=== PATIENT | female | born 1935 | race Caucasian/White ===

== ENCOUNTER 2020-07-14 17:46 | Emergency (ER) | payer MEDICARE ==
[~2020-07-14] VITALS: Ht 165.1 cm; Wt 80.9 kg
[2020-07-14] MEDS ORDERED: IV RINGERS SOLUTION,LACTATED 1,000 ML IV ONE (19:15)
--- NOTE | 2020-07-14 19:21 | PHYS DOC ---
Past History Past Medical History: GERD, Other Additional Past Medical Histor: [place] Past Surgical History: Appendectomy, Cancer Surgery, Cholecystectomy, Hip Replacement Additional Past Surgical Histo: colon Alcohol Use: None Adult General Chief Complaint Chief Complaint: NAUSEA/VOMITING/DIARRHEA HPI HPI Patient is an 84-year-old female who presents with a chief complaint of soft stools over the last couple of days and positive Covid. Patient states over the last couple of days she has had soft stools but no watery diarrhea. Denies any blood in the stools. States a couple of days ago she went to the health department for a Covid swab because she had some sinus congestion and was called today letting her know that she was positive. Patient states that she called her primary care physician to let her know and was given information on quarantine. Denies headache, sore throat, fevers, chest pain, shortness of breath, abdominal pain, abdominal cramping, dysuria, hematuria or blood in the stool. States she is able to eat and drink normally. States she is making urine otherwise normally and stool has been soft but not watery. Denies any known ill contacts or recent travel. Review of Systems Review of Systems Review of systems otherwise unremarkable except for what is noted in HPI Allergies Allergies Allergies Coded Allergies Type Severity Reaction Last Updated Verified Influenza Virus Vaccines Allergy Unknown 07/14/20 Yes Sulfa (Sulfonamide Antibiotics) Allergy Unknown 07/14/20 Yes pneumococcal vaccine Allergy Unknown 07/14/20 Yes tetanus and diphtheria toxoids Allergy Unknown 07/14/20 Yes Physical Exam Physical Exam Constitutional: Well developed, well nourished, no acute distress, non-toxic appearance. [] HENT: Normocephalic, atraumatic, bilateral external ears normal, oropharynx moist, no oral exudates, nose normal. [] Eyes: PERRLA, EOMI, conjunctiva normal, no discharge. [] Neck: Normal range of motion, no tenderness, supple, no stridor. [] Cardiovascular:Heart rate regular rhythm, no murmur [] Lungs & Thorax: Bilateral breath sounds clear to auscultation [] Abdomen: Bowel sounds normal, soft, no tenderness, no masses, no pulsatile masses. [] Skin: Warm, dry, no erythema, no rash. [] Back: No tenderness, no CVA tenderness. [] Extremities: No tenderness, no cyanosis, no clubbing, ROM intact, no edema. [] Neurologic: Alert and oriented X 3, normal motor function, normal sensory function, no focal deficits noted. [] Psychologic: Affect normal, judgement normal, mood normal. [] Current Patient Data Vital Signs Vital Signs Date Time Temp Pulse Resp B/P (MAP) Pulse Ox O2 Delivery O2 Flow Rate FiO2 07/14/20 18:00 97.6 92 16 162/87 (112) 96 Room Air EKG EKG [] Radiology/Procedures Radiology/Procedures []FINDINGS: Lines, Tubes, and Devices: None. Cardiomediastinal Silhouette: Normal heart size. Aortic atherosclerotic calcification. Lungs and Pleura: Minimal patchy opacities in the right infrahilar region, possibly subsegmental atelectasis. No pleural effusion. Pulmonary vasculature unremarkable. Bones and Soft Tissues: Degenerative changes of the thoracic spine. IMPRESSION: Minimal right infrahilar patchy airspace disease, possibly subsegmental atelectasis, otherwise no evidence of acute cardiopulmonary abnormality or significant interval change. Heart Score Risk Factors: Risk Factors: DM, Current or recent (<one month) smoker, HTN, HLP, family history of CAD, obesity. Risk Scores: Risk Factors: DM, Current or recent (<one month) smoker, HTN, HLP, family history of CAD, obesity. Course & Med Decision Making Course & Med Decision Making Patient is a 84-year-old female who presents for soft stools and is Covid positive. Vital signs notable for hypertension. Physical exam noted above. Patient with no need for nausea medicine or pain medicine at this time. Laboratory analysis not concerning. Urinalysis not concerning. Chest x-ray not concerning and noted above. Patient able to walk without issue and is otherwise asymptomatic outside of the soft stool she complained about. Discussed all findings with patient and recommended a clear to light diet over the next couple of days including plenty of fluids. Advised to quarantine and given education on that for Covid. Advised to follow-up with primary care physician first thing Friday morning to update on ED visit and Covid status. Advised to come back to the ED immediately with new or concerning symptoms. Patient grateful, verbalized understanding and agreed with plan of discharge. [] Dragon Disclaimer Dragon Disclaimer This electronic medical record was generated, in whole or in part, using a voice recognition dictation system. Departure Departure: Disposition: 01 DC HOME SELF CARE/HOMELESS Condition: GOOD Referrals: RIO STOVALL (PCP) SHAWN GONZALEZ MD Jul 14, 2020 19:21
[2020-07-14 19:39] LABS: BASO % 1 % (0-3); EOS % 1 % (0-3); HEMATOCRIT 40.3 % (36.0-47.0); HEMOGLOBIN 13.3 g/dL (12.0-15.5); LYMPH # 1.1 x10^3/uL (1.0-4.8); LYMPH % 27 % (24-48); MEAN CORPUSCULAR HEMOGLOBIN 28 pg (25-35); MEAN CORPUSCULAR HGB CONC 33 g/dL (31-37); MEAN CORPUSCULAR VOLUME 86 fL (79-100); MONO # 0.3 x10^3/uL (0.0-1.1); MONO % 8 % (0-9); NEUT # 2.6 x10^3uL (1.8-7.7); NEUT % 64 % (31-73); PLATELET COUNT 177 x10^3/uL (140-400); RED BLOOD COUNT 4.71 x10^6/uL (3.50-5.40); RED CELL DISTRIBUTION WIDTH 14.7 % (11.5-14.5); WHITE BLOOD COUNT 4.1 x10^3/uL (4.0-11.0)
[2020-07-14 19:45] LABS: CREATININE 0.8 mg/dL (0.6-1.0); GFR 68.3; POTASSIUM 3.6 mmol/L (3.5-5.1)
[2020-07-14 19:49] LABS: BILIRUBIN,URINE NEG (NEG); CLARITY,URINE CLEAR; COLOR,URINE COLORLESS; GLUCOSE,URINE NEG (NEG)
[2020-07-14 19:50] LABS: BACTERIA,URINE 0 /HPF (0-FEW); NITRITE,URINE NEG (NEG); RBC,URINE 0 /HPF (0-2); SQUAMOUS EPITHELIAL CELL,UR OCC /LPF; UROBILINOGEN,URINE 0.2 mg/dL (0.2 mg/dL); WBC,URINE 0 /HPF (0-4)
[2020-07-14 19:59] LABS: ALBUMIN 3.6 g/dL (3.4-5.0); ALBUMIN/GLOBULIN RATIO 0.8 (1.0-1.7); TOTAL BILIRUBIN 0.6 mg/dL (0.2-1.0)
--- NOTE | 2020-07-14 20:49 | RAD ---
EXAMINATION: XR CHEST 1V CLINICAL HISTORY: Chest pain, DIARRHEA, COVID + EXAM DATE/TIME: 07/14/2020 7:46 PM COMPARISON: 09/14/2007 FINDINGS: Lines, Tubes, and Devices: None. Cardiomediastinal Silhouette: Normal heart size. Aortic atherosclerotic calcification. Lungs and Pleura: Minimal patchy opacities in the right infrahilar region, possibly subsegmental atel ectasis. No pleural effusion. Pulmonary vasculature unremarkable. Bones and Soft Tissues: Degenerative changes of the thoracic spine. IMPRESSION: Minimal right infrahilar patchy airspace disease, possibly subsegmental atelectasis, otherwise no kelly dence of acute cardiopulmonary abnormality or significant interval change. Electronically signed by: Ambrocio Rachel DO (07/14/2020 8:46 PM) [facility]
[2020-07-14 21:01] VITALS: BP 156/87
== END 2020-07-14 21:46 | disposition home or self-care (01) ==
LOC: ER 17:46
DX: U07.1 COVID-19 (principal); R09.81 Nasal congestion; K21.9 Gastro-esophageal reflux disease without esophagitis; Z90.49 Acquired absence of other specified parts of digestive tract; Z90.89 Acquired absence of other organs; Z88.7 Allergy status to serum and vaccine; Z88.2 Allergy status to sulfonamides
CPT/HCPCS: 36415; 71045; 80053; 81001; 85025; 96360; 96361; 99284; J7120

== ENCOUNTER 2020-07-16 10:41 | Observation (INO) | payer MEDICARE ==
[~2020-07-16] VITALS: Ht 162.6 cm; Wt 88.9 kg
--- NOTE | 2020-07-16 10:49 | PHYS DOC ---
Past History Past Medical History: GERD, Other Additional Past Medical Histor: pranav nicolásdes Past Surgical History: Appendectomy, Cancer Surgery, Cholecystectomy, Hip Replacement Additional Past Surgical Histo: colon Alcohol Use: None Adult General HPI HPI Patient is a 84-year-old female presenting for fatigue. Patient was diagnosed with COVID-19 4 days ago, is currently on day 5 of symptoms. Was seen at our ER 48 hours ago for classic COVID-19 symptoms, does not have any upper respiratory tract type symptoms, mostly fatigue, body ache, nausea with rare episodes of nonbloody nonbilious emesis and looser stools than usual. She lives home alone and has been trying to provide supportive care to her self, states she has had no appetite and feeling weaker than usual. Has had no fever, syncope, falls, URI-like symptoms, chest pain, productive cough, abdominal pain, urinary symptoms. As mention, patient complains of generalized malaise, nonspecific lightheadedness and dizziness "at times", decreased p.o. intake, ongoing nausea, and muscle aches most prominent in arms and legs. Review of Systems Review of Systems Fourteen body systems of review of systems have been reviewed. See HPI for pert inent positives and negative responses, other irving all other systems are negative, non-pertinent or non-contributory Allergies Allergies Allergies Coded Allergies Type Severity Reaction Last Updated Verified Influenza Virus Vaccines Allergy Unknown 07/14/20 Yes Sulfa (Sulfonamide Antibiotics) Allergy Unknown 07/14/20 Yes pneumococcal vaccine Allergy Unknown 07/14/20 Yes tetanus and diphtheria toxoids Allergy Unknown 07/14/20 Yes Physical Exam Physical Exam Constitutional: Well developed, well nourished, no acute distress, non-toxic appearance. HENT: Normocephalic, atraumatic, bilateral external ears normal, oropharynx moist, no oral exudates, nose normal. Eyes: PERRLA, EOMI, conjunctiva normal, no discharge. Neck: Normal range of motion, no tenderness, supple, no stridor. Cardiovascular: Heart rate regular, sinus rhythm, no murmurs rubs or gallops Lungs & Thorax: Bilateral breath sounds clear to auscultation Abdomen: Bowel sounds normal, soft, no tenderness, no masses, no pulsatile masses. Nonsurgical abdomen, no peritoneal signs Skin: Warm, dry, no erythema, no rash. Back: No tenderness, no CVA tenderness. Extremities: No tenderness, no cyanosis, no clubbing, ROM intact, no edema. Neurologic: Alert and oriented X 3, grossly normal motor & sensory function, no focal deficits noted. Gait unremarkable Psychologic: Depressed affect and mood Current Patient Data Vital Signs Vital Signs Date Time Temp Pulse Resp B/P (MAP) Pulse Ox O2 Delivery O2 Flow Rate FiO2 07/16/20 10:45 98.6 95 20 165/72 (103) 97 Room Air 07/16/20 10:41 98.6 95 18 165/72 (103) 97 Room Air Lab Results Laboratory Tests Test 07/16/20 11:18 White Blood Count 4.4 x10^3/uL Red Blood Count 4.90 x10^6/uL Hemoglobin 13.7 g/dL Hematocrit 41.5 % Mean Corpuscular Volume 85 fL Mean Corpuscular Hemoglobin 28 pg Mean Corpuscular Hemoglobin Concent 33 g/dL Red Cell Distribution Width 14.8 % Platelet Count 179 x10^3/uL Neutrophils (%) (Auto) 78 % Lymphocytes (%) (Auto) 15 % Monocytes (%) (Auto) 6 % Eosinophils (%) (Auto) 0 % Basophils (%) (Auto) 1 % Neutrophils # (Auto) 3.4 x10^3uL Lymphocytes # (Auto) 0.7 x10^3/uL Monocytes # (Auto) 0.2 x10^3/uL Eosinophils # (Auto) 0.0 x10^3/uL Basophils # (Auto) 0.1 x10^3/uL Sodium Level 137 mmol/L Potassium Level 3.4 mmol/L Chloride Level 100 mmol/L Carbon Dioxide Level 23 mmol/L Anion Gap 14 Blood Urea Nitrogen 13 mg/dL Creatinine 0.8 mg/dL Estimated GFR (Cockcroft-Gault) 68.3 BUN/Creatinine Ratio 16 Glucose Level 200 mg/dL Calcium Level 8.8 mg/dL Total Bilirubin 0.9 mg/dL Aspartate Amino Transf (AST/SGOT) 40 U/L Alanine Aminotransferase (ALT/SGPT) 39 U/L Alkaline Phosphatase 80 U/L Troponin I Quantitative 0.021 ng/mL Total Protein 8.2 g/dL Albumin 3.7 g/dL Albumin/Globulin Ratio 0.8 EKG EKG EKG ordered and interpreted by myself at 1116 hrs. as sinus rhythm at 92 bpm, prolonged AR at 236, otherwise unremarkable intervals, left axis deviation, no acute ischemic findings, no STEMI Radiology/Procedures Radiology/Procedures EXAMINATION: XR CHEST 1V CLINICAL HISTORY: Chest pain, DIARRHEA, COVID + EXAM DATE/TIME: 07/14/2020 7:46 PM COMPARISON: 09/14/2007 FINDINGS: Lines, Tubes, and Devices: None. Cardiomediastinal Silhouette: Normal heart size. Aortic atherosclerotic calcification. Lungs and Pleura: Minimal patchy opacities in the right infrahilar region, possibly subsegmental atelectasis. No pleural effusion. Pulmonary vasculature unremarkable. Bones and Soft Tissues: Degenerative changes of the thoracic spine. IMPRESSION: Minimal right infrahilar patchy airspace disease, possibly subsegmental atelectasis, otherwise no evidence of acute cardiopulmonary abnormality or significant interval change. Electronically signed by: Ambrocio Rachel DO (07/14/2020 8:46 PM) [facility] Heart Score HEART Score for Chest Pain: HEART Score for Chest Pain Response (Comments) Value History Slighlty/Non-Suspicious 0 ECG Nonspecific Repolarizatio 1 Age > 65 2 Risk Factors >3 Risk Factors or Hx CAD 2 Troponin < Normal Limit 0 Total 5 Risk Factors: Risk Factors: DM, Current or recent (<one month) smoker, HTN, HLP, family history of CAD, obesity. Risk Scores: Risk Factors: DM, Current or recent (<one month) smoker, HTN, HLP, family history of CAD, obesity. Course & Med Decision Making Course & Med Decision Making Pertinent Labs and Imaging studies reviewed. (See chart for details) Discussed no obvious emergent and/or surgical findings today in known Covid positive patient who is still symptomatic. She lives home alone, denies any falls but admits feeling "lightheaded at times" with several "near misses" Patient appears clinically dehydrated and responded well to IV fluid rehydration in ER setting. Patient still concerned about returning home alone as she does not have regular care at home to assist through personal deficits at this time of illness Unsafe to disposition home. I discussed need for observation admission for home safety evaluation and continued supportive care with hospitalist, Dr. Traore, who agreed to accept patient under his care at [facility] I updated patient on plan of care that included admission to [facility] and she was amenable. All questions and concerns addressed prior to ER transportation to [facility] for admission Dragon Disclaimer Dragon Disclaimer This electronic medical record was generated, in whole or in part, using a voice recognition dictation system. Departure Departure: Impression: Primary Impression: COVID-19 Additional Impression: Nausea, vomiting, and diarrhea Disposition: ADMITTED INPT THIS HOSP Admitting Physician: Fermin Traore Condition: STABLE Referrals: RIO STOVALL (PCP) Problem Qualifiers HUONG LANDEROS DO Jul 16, 2020 10:49
[2020-07-16 11:33] LABS: BASO # 0.1 x10^3/uL (0.0-0.2); BASO % 1 % (0-3); EOS % 0 % (0-3); HEMATOCRIT 41.5 % (36.0-47.0); HEMOGLOBIN 13.7 g/dL (12.0-15.5); LYMPH # 0.7 x10^3/uL (1.0-4.8); LYMPH % 15 % (24-48); MEAN CORPUSCULAR HEMOGLOBIN 28 pg (25-35); MEAN CORPUSCULAR HGB CONC 33 g/dL (31-37); MEAN CORPUSCULAR VOLUME 85 fL (79-100); MONO # 0.2 x10^3/uL (0.0-1.1); MONO % 6 % (0-9); NEUT # 3.4 x10^3uL (1.8-7.7); NEUT % 78 % (31-73); PLATELET COUNT 179 x10^3/uL (140-400); RED CELL DISTRIBUTION WIDTH 14.8 % (11.5-14.5); WHITE BLOOD COUNT 4.4 x10^3/uL (4.0-11.0)
--- NOTE | 2020-07-16 11:34 | EKG ---
[address] [address] Test Date: 2020-07-16 Test Time: 11:06:37 Pat Name: BARRINGTON TRIPATHI Department: Room: Gender: F Drug Safety Physician: : [id number] Requested By: HUONG LANDEROS Order Number: [id number] Reading MD: Measurements Intervals [place] Rate: 92 P: 90 OK: 236 QRS: -59 QRSD: 88 T: 57 QT: 364 QTc: 455 Interpretive Statements SINUS RHYTHM PROLONGED OK INTERVAL ABNORMAL LEFT AXIS DEVIATION LEFT ANTERIOR FASCICULAR BLOCK CONSIDER LEFT VENTRICULAR HYPERTROPHY ST & T ABNORMALITY, CONSIDER HIGH LATERAL ISCHEMIA OR LEFT VENTRICULAR STRAIN ABNORMAL ECG RI6.02 No previous ECG available for comparison
[2020-07-16 11:41] LABS: CALCIUM 8.8 mg/dL (8.5-10.1); CREATININE 0.8 mg/dL (0.6-1.0); GFR 68.3; POTASSIUM 3.4 mmol/L (3.5-5.1)
[2020-07-16 11:47] LABS: ALBUMIN 3.7 g/dL (3.4-5.0); ALBUMIN/GLOBULIN RATIO 0.8 (1.0-1.7); TOTAL BILIRUBIN 0.9 mg/dL (0.2-1.0); TOTAL PROTEIN 8.2 g/dL (6.4-8.2)
[2020-07-16 14:30] VITALS: BP 139/69
--- NOTE | 2020-07-16 14:34 | NUR ---
The patient, BARRINGTON TRIPATHI, 84 y/o, F admitted by HILARIO GLOVER MD, was given written information regarding hospital policies, unit procedures and contact persons. Valuables were checked and VS taken, please see chart.
[2020-07-16] MEDS ORDERED: VERA240C2 PO (14:42)
[2020-07-16] MEDS ORDERED: ATORVASTATIN CA80 MG PO (14:42)
[2020-07-16] MEDS ORDERED: GLIM2TAB7 PO (14:42)
[2020-07-16] MEDS ORDERED: POTA20TA4 PO (14:42)
[2020-07-16] MEDS ORDERED: LOSA100T14 PO (14:42)
[2020-07-16] MEDS ORDERED: CHOL2400 MC (14:42)
[2020-07-16] MEDS: ACETAMINOPHEN 325 MG TABLET PO PRN ×2 (15:22→22:39)
[2020-07-16] MEDS: CALCIUM CARBONATE 500 MG TAB.CHEW PO PRN (15:22)
[2020-07-16 19:25] VITALS: BP 118/52
[2020-07-16] MEDS: ATORVASTATIN CALCIUM 20 MG TABLET PO SCH (19:58)
[2020-07-16] MEDS: VERAPAMIL SR 180 MG TABLET.ER. PO SCH (19:58)
[2020-07-16 23:34] VITALS: BP 124/49
--- NOTE | 2020-07-17 04:04 | NUR ---
PT WAS IN BED UPON ASSESSMENT AND MED PASS. PT IS ANXIOUS BUT COOPERATIVE. PT HAD CONCERNS WITH HER WATERY BOWEL MOVEMENTS. SHE ASKED IF SHE COULD HAVE SOMETHING FOR THEM. THIS NURSE CALLED THE DR TO REQUEST FLUIDS DO TO PT BEING DEHYDRATED AND ALSO HAVING SOME MANY WATERY STOOLS AND ALSO SOMETHING TO HELP PT WITH HER BOWELS. DR GAVE NO ORDERS.
[2020-07-17 05:20] VITALS: BP 109/53
--- NOTE | 2020-07-17 08:46 | HP ---
ADMIT DATE: 07/16/2020 ATTENDING PHYSICIAN: Dr. Glover. CHIEF COMPLAINT: Weakness. HISTORY OF PRESENT ILLNESS: The patient is an 84-year-old female who lives alone. She had COVID-19 diagnosed five days ago. Her main complaints, however, are GI in nature. She has had loose stools and diarrhea ongoing for the last 2 weeks. She has GI doctor with a known history of Crohn's disease. She has had colon resection and some short bowel issues. Colon resection was in 1981. No bloody stools. Her abdominal exam was unremarkable. She does not appear clinically dehydrated. Has more loose stools and explosive diarrhea. In any event, she is concerned she had some fatigue, myalgias. She lives alone. There is no one to look after her and she thinks that she needs is exacerbation of Crohn's. I suspect she has gastroenteritis, although underlying pathology cannot be ruled out. PAST MEDICAL HISTORY: Significant for Crohn's disease, COVID-19 exposure, gastroesophageal reflux disease, diabetes, and hyperlipidemia. PAST SURGICAL HISTORY: Includes appendectomy, cholecystectomy, partial colectomy with primary anastomosis, hip replacement. ALLERGIES: SHE HAS ALLERGIES TO SULFA DRUGS, PNEUMOCOCCAL VACCINE, TETANUS AND DIPHTHEROID TOXIN. CURRENT MEDICATIONS: Include the following: She was taking verapamil 240 daily, potassium, losartan, glimepiride, cholecalciferol and Lipitor. FAMILY HISTORY: Father of heart disease at age 59. Mom of unspecified cancer at age 84, mother also had dementia. SOCIAL HISTORY: She is a nonsmoker, nondrinker. REVIEW OF SYSTEMS: Significant for the GI symptoms. No pain, no fevers, chills, cough, congestion, generalized weakness and tired. All other systems reviewed and turned to be negative. PHYSICAL EXAMINATION: GENERAL: When I saw her, this is a pleasant elderly female who was fairly alert. INITIAL VITAL SIGNS: Showed a blood pressure of 139/69, pulse is 81 and regular, temperature 98.6 degrees Fahrenheit, oxygen saturation 93% on room air. HEENT: Head is without trauma. Pupils are reactive. Sclerae nonicteric. Oropharynx is clear. NECK: Supple, no bruits identified. LUNGS: Good breath sounds. CARDIOVASCULAR: Showed regular heart tones. No gallops. ABDOMEN: Soft, no guarding, rebound tenderness. Bowel sounds are hypoactive. There is no guarding. There are no masses palpated. EXTREMITIES: Showed no cyanosis or edema. NEUROLOGIC: Focally intact. Speech is fluent. SKIN: Warm and dry. PERTINENT LABORATORY STUDIES: Her sodium is 137 mEq/L, potassium 3.4. Nonfasting blood sugar was 200; however, repeated is down to 121. Her BUN was 13, creatinine 0.8 mg percent. Hemoglobin is 13.7 g/dL with a white count of 4400. Normal differential. Chest x-ray done on the showed minimal patchy opacity in the right infrahilar region. No acute other infiltrates identified. ASSESSMENT: 1. An 84-year-old female with loose stools and diarrhea. Etiology needs to be determined. She has had this for several days now. 2. Generalized weakness and fatigue without laboratory evidence of dehydration. 3. Recent COVID-19 exposure without pulmonary symptoms. 4. History of Crohn's disease with previous colon resection and anastomosis. 5. Hypertension. 6. Type 2 diabetes. 7. Strong anxiety component. PLAN: 1. She was admitted to our medical service. 2. The patient is trying to get a hold of her daughter and primary care doctor to get her transferred to [facility] where her GI doctor is. I will see if this is feasible. 3. Diet as tolerated. 4. Continue home meds. HILARIO GLOVER MD DR: KATHERYN/fabienne JOB#: [id number] / [id number] RIO Copeland
[2020-07-17] MEDS: LOSARTAN 50 MG TABLET. PO SCH (09:31)
[2020-07-17] MEDS: POTASSIUM CHLORIDE 20 MEQ TABLET.ER. PO SCH (09:32)
[2020-07-17] MEDS: GLIMEPIRIDE 2 MG TABLET PO SCH (09:32)
[2020-07-17 10:43] VITALS: BP 127/61
[2020-07-17] MEDS ORDERED: DIPHENOXYLATE/ATROPINE TABLET. PO PRN (11:15)
[2020-07-17] MEDS: CALCIUM CARBONATE 500 MG TAB.CHEW PO PRN (13:09)
[2020-07-17 15:15] VITALS: BP 135/71
[2020-07-17 19:05] VITALS: BP 123/61
[2020-07-17] MEDS: ATORVASTATIN CALCIUM 20 MG TABLET PO SCH (20:24)
[2020-07-17] MEDS: VERAPAMIL SR 180 MG TABLET.ER. PO SCH (20:24)
[2020-07-17 23:30] VITALS: BP 108/48
[2020-07-18 06:00] VITALS: BP 111/52
[2020-07-18] MEDS: POTASSIUM CHLORIDE 20 MEQ TABLET.ER. PO SCH (08:36)
[2020-07-18] MEDS: GLIMEPIRIDE 2 MG TABLET PO SCH (08:36)
[2020-07-18] MEDS: LOSARTAN 50 MG TABLET. PO SCH (08:36)
[2020-07-18 10:50] VITALS: BP 125/70
--- NOTE | 2020-07-18 11:29 | PN ---
DATE: 07/18/2020 ATTENDING PHYSICIAN: Dr. Glover. SUBJECTIVE: The patient still is having bloating, abdominal discomfort, still having loose stools. She was able to send the specimen down for C. diff toxin. OBJECTIVE FINDINGS: VITAL SIGNS: Blood pressure today is 111/52, temperature 99.1 degrees Fahrenheit, heart rate 72 and regular, oxygen saturation 94% on room air. HEENT: Head is without trauma. Pupils are reactive. Sclerae nonicteric. Oropharynx clear. NECK: Supple, no bruits. LUNGS: Entirely clear. CARDIOVASCULAR: Showed regular heart tones. No gallops. ABDOMEN: Soft. There is some gaseous distention. Normoactive bowel sounds. No masses, no guarding or rebound tenderness. No masses palpated. EXTREMITIES: Without edema. NEUROLOGIC: Focally intact. Affect is fairly normal. ASSESSMENT: 1. An 84-year-old female with recurrent diarrhea. 2. Generalized weakness. 3. History of Crohn's disease. I do not believe this is active at this time. 4. The patient's daughter tells me she has had 2 previous episodes of Clostridium difficile colitis, most recently 8 months ago. PLAN: 1. Simethicone 120 mg t.i.d. 2. Diet as tolerated. 3. Await stool specimen for CDTA. 4. Empiric vancomycin pending results of the CTDA. If it is negative, we can stop the antibiotics at that time. HILARIO GLOVER MD DR: KATHERYN/fabienne JOB#: [id number] / [id number]
[2020-07-18] MEDS: SIMETHICONE 80 MG TAB.CHEW PO SCH ×2 (12:45→20:07)
[2020-07-18] MEDS ORDERED: VANCOMYCIN 125 MG/2.5 ML ORAL SOLUTION. PO SCH (13:00)
[2020-07-18 14:58] VITALS: BP 111/65
[2020-07-18] MEDS ORDERED: CHOLECALCIFEROL (VITAMIN D3) 50,000 UNIT CAPSULE PO SCH (16:00)
[2020-07-18] MEDS: IV NORMAL SALINE 1,000ML 1,000 ML IV SCH (16:01)
--- NOTE | 2020-07-18 16:58 | NUR ---
PATIENT IS AWAKE IN A BED, CALM AND COOPERATIVE UPON ASSESSMENT, PATIENT C/O ABDOMINAL DISCOMFORT, BLOATING, GAS , LOOSE STOOL. PATIENT C/O LOW APPETITE. C DIFF RESULT CAME BACK NEGATIVE, DR. GLOVER NOTIFIED, OBTAINED ORDER FOR IV FLUIDS OF NS AT 60ML/HR. WILL CTM.
[2020-07-18 19:32] VITALS: BP 128/66
[2020-07-18] MEDS ORDERED: ACETAMINOPHEN 325 MG TABLET PO PRN (19:45)
[2020-07-18] MEDS: ATORVASTATIN CALCIUM 20 MG TABLET PO SCH (20:06)
[2020-07-18] MEDS: VERAPAMIL SR 180 MG TABLET.ER. PO SCH (20:07)
--- NOTE | 2020-07-18 21:19 | NUR ---
Pt resting in bed when approached for assessment. VS obtained. Pt had low grade temp of 100.0. MD was called and orders received. Tylenol given as indicated. Pt stated her "stomach feels much better now" and no complaints of pain. Pt was given crackers and applesauce and instructed to eat what was tolerable. Pt is resting in bed w/ call light in reach. Will continue to monitor.
[2020-07-19 05:12] VITALS: BP 117/50
[2020-07-19] MEDS: GLIMEPIRIDE 2 MG TABLET PO SCH (08:18)
[2020-07-19 08:19] VITALS: BP 117/50
[2020-07-19] MEDS: POTASSIUM CHLORIDE 20 MEQ TABLET.ER. PO SCH (08:19)
[2020-07-19] MEDS: LOSARTAN 50 MG TABLET. PO SCH (08:19)
[2020-07-19] MEDS: SIMETHICONE 80 MG TAB.CHEW PO SCH (08:19)
[2020-07-19] MEDS: IV NORMAL SALINE 1,000ML 1,000 ML IV SCH (08:30)
[2020-07-19 10:10] LABS: BASO % 1 % (0-3); EOS % 0 % (0-3); HEMATOCRIT 40.6 % (36.0-47.0); HEMOGLOBIN 13.2 g/dL (12.0-15.5); LYMPH % 24 % (24-48); MEAN CORPUSCULAR HEMOGLOBIN 28 pg (25-35); MEAN CORPUSCULAR HGB CONC 33 g/dL (31-37); MEAN CORPUSCULAR VOLUME 85 fL (79-100); MONO # 0.4 x10^3/uL (0.0-1.1); MONO % 9 % (0-9); NEUT # 2.9 x10^3uL (1.8-7.7); NEUT % 66 % (31-73); PLATELET COUNT 149 x10^3/uL (140-400); RED BLOOD COUNT 4.75 x10^6/uL (3.50-5.40); RED CELL DISTRIBUTION WIDTH 14.9 % (11.5-14.5); WHITE BLOOD COUNT 4.4 x10^3/uL (4.0-11.0)
[2020-07-19 10:21] LABS: ALBUMIN 3.4 g/dL (3.4-5.0); ALBUMIN/GLOBULIN RATIO 0.8 (1.0-1.7); CALCIUM 8.7 mg/dL (8.5-10.1); CREATININE 0.7 mg/dL (0.6-1.0); GFR 79.7; POTASSIUM 3.4 mmol/L (3.5-5.1); TOTAL BILIRUBIN 0.6 mg/dL (0.2-1.0); TOTAL PROTEIN 7.7 g/dL (6.4-8.2)
--- NOTE | 2020-07-19 14:35 | DISCH ---
HOME HEALTH DISCHARGE/MEDS DISCHARGE INFORMATION: Discharge Date: Jul 19, 2020 Final Diagnosis: Problems Medical Problems: (1) Nausea, vomiting, and diarrhea Status: Acute Condition on Discharge: Stable CODE STATUS: Code Status: Full HOME HEALTH: Face to Face: I certify this patient is under my care and that I, or a nurse practitioner or physician's medical assistant instructor working with me, had a face to face encounter that meets the physician face to face encounter requirements with this patient on 07/19/2020 Jail For: Admin/Educate Injections Physical Therapy For: Evalulation/Treatment Occupational Therapy For: Evaluation/Treatment Homebound Status Met By: Extreme weakness w/ amb. POST DISCHARGE ORDERS: Activity Instructions for Disc: Activity as tolerated DIET AFTER DISCHARGE: Regular CERTIFICATION STATEMENT: Certification Statement: Based on the above finding, I certify that this patient is confined to the home and needs intermittent longterm care, physical therapy and/or speech therapy, or continues to need occupational therapy.~ This patient is under my care, and I have initiated the establishment of the plan of care.~ This patient will be followed by myself or a community physician who will periodically review the plan of care. DISCHARGE MEDICATIONS: Home Meds Reported Medications Glimepiride (GLIMEPIRIDE) 2 Mg Tablet, 1 TAB PO DAILY for diabetes , #30 TAB 5 Refills 07/16/20 Potassium Chloride (POTASSIUM CHLORIDE ) 20 Meq Tablet.er, 20 MEQ PO DAILY for SUPPLEMENT, TAB 07/16/20 Losartan Potassium (LOSARTAN POTASSIUM) 100 Mg Tablet, 50 MG PO DAILY for HYPERTENSION, TAB 07/16/20 Atorvastatin Calcium (ATORVASTATIN CALCIUM) 80 Mg Tablet, 1 TAB PO HS for high cholesterol, #30 TAB 5 Refills 07/16/20 Cholecalciferol (Vitamin D3) (VITAMIN D3) 2,400 Unit/1 Ml Liquid, [address] UNIT [facility] WEEKLY for supplement, LIQUID 07/16/20 Verapamil Hcl (VERAPAMIL ER) 240 Mg Cap24h.pel, 180 MG PO HS for high blood pressure, CAP 07/16/20 CRISTI TERRAZAS MD Jul 19, 2020 14:35
--- NOTE | 2020-07-19 15:00 | DS ---
DATE OF DISCHARGE: 07/16/2020 HOSPITAL COURSE: The patient old is an 84-year-old female patient who was diagnosed with COVID-19 about 5 days prior to admission. She apparently had had a cough and nasal stuffiness and [facility] she was tested and was diagnosed with COVID-19. She was seen at the [facility] about 48 hours for classic COVID-19 symptoms. Does not have any upper respiratory type symptoms, mostly fatigue, body ache, nausea with rare episodes of nonbloody, nonbilious emesis, and looser stools than usual. She lives at home alone and has been trying to provide supportive care through herself. States she has had no appetite and feeling weaker than usual. She had no fever, syncope, falls, upper respiratory tract infection like symptoms. Denied any chest pain, productive cough, abdominal pain, or urinary symptoms. Did complain of generalized malaise and nonspecific lightheadedness and dizziness at times, decreased p.o. intake, and ongoing nausea and muscle aches, most prominently in arms and legs. She was admitted, started on IV fluid and did actually very well. She remained afebrile, hemodynamically stable. PHYSICAL EXAMINATION: GENERAL: When I examined her, she looked well and was clearly in no apparent respiratory distress. No pallor, jaundice, cyanosis, or thyromegaly. No jugular venous distention, no limb edema. VITAL SIGNS: Her heart rate was 67, blood pressure was 117/50, temperature 97.4, respiratory rate was 18, and her oxygen saturation was 95%. HEAD, EYES, EARS, NOSE AND THROAT: Showed normocephalic, atraumatic. NECK: Supple. HEART: Showed normal first and second heart sounds. No gallop, rub, or murmur. CHEST: Clear to auscultation. No crepitation or rhonchi. ABDOMEN: Distended, soft, nontender. NEUROLOGIC: She is awake, alert, responding appropriately. Her cranial nerves are intact. She moves extremities without difficulty. She ambulates without assistance or assistive devices. Her intake over the last 24 hours was 613; no output was recorded. LABORATORY DATA: Her lab work as of this morning showed a white cell count 4400, hemoglobin 13, hematocrit 40, MCV 85, and platelet count of 149,000. Her chemistry showed a serum sodium 139, potassium 3.4, chloride 103, bicarbonate 22, anion gap of 14, BUN 16, creatinine 0.7, estimated GFR was 79 mL per minute. Her glucose 144, calcium was 8.7. Total bilirubin, AST, ALT, and alkaline phosphatase were normal. Total protein 7.7, albumin was 3.4. Her stool for C. diff toxins was negative. DISCHARGE MEDICATIONS: The patient was discharged home to continue on atorvastatin 80 mg at bedtime, cholecalciferol, vitamin D3 50,000 units once a week, glimepiride 2 mg once a day, losartan potassium 50 mg once a day, potassium chloride 20 mEq once a day, and verapamil 180 mg once a day. FINAL DISCHARGE DIAGNOSES: 1. COVID-19 infection. The patient is feeling generally much better. All her aches and pains and generalized weakness have resolved. 2. Crohn's disease. She continues to have loose bowel movement. Did not seem to be worse than her usual when questioning her closely. 3. Other medical problems include obviously hypertension, gastroesophageal reflux disease, diabetes, and hyperlipidemia. CRISTI TERRAZAS MD DR: TSERING/fabienne JOB#: [id number] / [id number]
--- NOTE | 2020-07-19 15:08 | NUR ---
DISCHARGE PATIENT TO HOME WITH HOME HEALTH SERVICES. DISCHARGE PAPERWORK COVERED WITH PATIENT, INCLUDING MEDICATION LIST. IV DISCONTINUED. NO BLEEDING AT SITE AFTER DISCONTINUATION. PT AMBULATES WITH CANE TO FRONT DOORS FOR DISCHARGE.
[2020-07-23] MEDS ORDERED: NON FORMULARY ITEM (Cholecalciferol (Vitamin D3) (Vitamin D3) 50,000 UNIT) MC SCH (09:00)
== END 2020-07-19 15:10 | disposition home health service (06) ==
LOC: ER 10:41 → 1 SOUTH 11:54 → ER 13:07 → OBSVTOIN 07-17 13:45 → INTOOBSV 07-17 13:45
PROVIDERS: ADMIT Hospitalist; ATTEND Hospitalist
DX: U07.1 COVID-19 (principal); R53.1 Weakness; I10 Essential (primary) hypertension; E11.9 Type 2 diabetes mellitus without complications; E78.5 Hyperlipidemia, unspecified; F41.9 Anxiety disorder, unspecified; R11.2 Nausea with vomiting, unspecified; K50.90 Crohn's disease, unspecified, without complications; K21.9 Gastro-esophageal reflux disease without esophagitis; Z96.649 Presence of unspecified artificial hip joint; Z90.49 Acquired absence of other specified parts of digestive tract; Z98.890 Other specified postprocedural states
CPT/HCPCS: 36415; 80053; 82947; 84484; 85025; 87493; 93005; 96360; 96361; 99285; G0378; J7030; G0379

== ENCOUNTER 2020-07-21 10:20 | Inpatient (IN) | payer MEDICARE ==
[~2020-07-21] VITALS: Ht 162.6 cm; Wt 89.3 kg
[~2020-07-21 10:20] MED LIST: ATORVASTATIN CA80 MG PO; CHOL2400 MC; GLIM2TAB7 PO; LOSA100T14 PO; POTA20TA4 PO; VERA240C2 PO
--- NOTE | 2020-07-21 10:26 | PHYS DOC ---
Past History Past Medical History: GERD, Other Additional Past Medical Histor: [place] Past Surgical History: Appendectomy, Cancer Surgery, Cholecystectomy, Hip Replacement Additional Past Surgical Histo: colon Alcohol Use: None General Adult EDM: Chief Complaint: URINARY FREQUENCY HPI: HPI: 84-year-old female presents emergency department today with generalized weakness. Her generalized weakness has worsened over the past 2 days. She was discharged from the hospital about 2 days ago. She had been admitted for generalized weakness. She denies any focal neurologic deficits she denies vertigo. She denies double vision. She denies any pain. She has had slight loose stools which is chronic for her as she does have Crohn's disease. Location generalized. Duration constant. No alleviating factors. ROS neg for cp/soa/cough. She denies fevers chills rash nuchal rigidity. She denies dysuria polyuria or hematuria. All other review of systems negative ED course: 84-year-old female presenting with generalized weakness. EKG obtained and reviewed by myself shows sinus rhythm with regular rate. ST segments congruent. Not suggestive of acute ischemia. CBC unremarkable. Chemistry panel unremarkable. Troponin within normal notes. Lactic acid within normal notes. Urine analysis is negative for infection. Chest x-ray unremarkable. Head CT unremarkable. Patient feels that she is too weak to go home. She initially wanted to go to [facility] however they are currently not excepting transfers. We will admit the patient for further evaluation and treatment. Dr. Barajas accepts patient for admission. Potentially we can transfer the patient if a bed becomes available at [facility]. For now we will admit the patient here. Patient is on an oral third-generation cephalosporin for a history of a pneumonia. I gave her her dose for this morning. Allergies: Allergies: Allergies Coded Allergies Type Severity Reaction Last Updated Verified Influenza Virus Vaccines Allergy Unknown 07/14/20 Yes Sulfa (Sulfonamide Antibiotics) Allergy Unknown 07/14/20 Yes pneumococcal vaccine Allergy Unknown 07/14/20 Yes tetanus and diphtheria toxoids Allergy Unknown 07/14/20 Yes Physical Exam: PE: Constitutional: Well developed, well nourished, no acute distress, non-toxic appearance. [] HENT: Normocephalic, atraumatic, bilateral external ears normal, oropharynx moist, no oral exudates, nose normal. [] Eyes: PERRLA, EOMI, conjunctiva normal, no discharge. [] Neck: Normal range of motion, no tenderness, supple, no stridor. [] Cardiovascular:Heart rate regular rhythm, no murmur [] Lungs & Thorax: Bilateral breath sounds clear to auscultation [] Abdomen: Bowel sounds normal, soft, no tenderness, no masses, no pulsatile masses. [] Skin: Warm, dry, no erythema, no rash. [] Back: No tenderness, no CVA tenderness. [] Extremities: No tenderness, no cyanosis, no clubbing, ROM intact, no edema. [] Neurologic: Mental status: Awake oriented and alert x3 Cranial nerves: Extraocular movements intact, eyebrows richie bilaterally, smile symmetric, uvula elevation nl, shoulder shrug intact bilaterally, tongue protrusion normal [id number] normal. Speech clear. Sensation: equal and normal in all extremities Strength: 5/5 in upper and lower extremities bilaterally Psychologic: Affect normal, judgement normal, mood normal. [] EKG: EKG: [] Radiology/Procedures: Radiology/Procedures: [] Heart Score: Risk Factors: Risk Factors: DM, Current or recent (<one month) smoker, HTN, HLP, family history of CAD, obesity. Risk Scores: Score 0 - 3: 2.5% MACE over next 6 weeks - Discharge Home Score 4 - 6: 20.3% MACE over next 6 weeks - Admit for Clinical Observation Score 7 - 10: 72.7% MACE over next 6 weeks - Early Invasive Strategies Course & Med Decision Making: Course & Med Decision Making Pertinent Labs and Imaging studies reviewed. (See chart for details) [] Dragon Disclaimer: Dragon Disclaimer: This electronic medical record was generated, in whole or in part, using a voice recognition dictation system. Departure Departure: Impression: Primary Impression: Generalized weakness Disposition: ADMITTED INPT THIS HOSP Condition: STABLE Referrals: RIO STOVALL (PCP) LAN WANG MD Jul 21, 2020 10:26
--- NOTE | 2020-07-21 10:44 | EKG ---
[facility] ED [facility] [address] [place] [id number] Test Date: 2020-07-21 Test Time: 10:33:48 Pat Name: BARRINGTON TRIPATHI Department: Room: Gender: F Watch Dial Maker: : 1935 Requested By: LAN WANG Order Number: [id number] Reading MD: Measurements Intervals [place] Rate: 79 P: 90 CA: 208 QRS: -60 QRSD: 96 T: 71 QT: 392 QTc: 456 Interpretive Statements SINUS RHYTHM ABNORMAL LEFT AXIS DEVIATION LEFT ANTERIOR FASCICULAR BLOCK LVH WITH REPOLARIZATION ABNORMALITY QRS(T) CONTOUR ABNORMALITY CONSIDER ANTEROSEPTAL MYOCARDIAL DAMAGE ABNORMAL ECG RI6.02 No previous ECG available for comparison
[2020-07-21 11:08] LABS: BASO # 0.1 x10^3/uL (0.0-0.2); BASO % 1 % (0-3); EOS % 0 % (0-3); HEMATOCRIT 43.7 % (36.0-47.0); HEMOGLOBIN 14.4 g/dL (12.0-15.5); LYMPH % 20 % (24-48); MEAN CORPUSCULAR HEMOGLOBIN 28 pg (25-35); MEAN CORPUSCULAR HGB CONC 33 g/dL (31-37); MEAN CORPUSCULAR VOLUME 85 fL (79-100); MONO # 0.3 x10^3/uL (0.0-1.1); MONO % 7 % (0-9); NEUT # 3.6 x10^3uL (1.8-7.7); NEUT % 72 % (31-73); PLATELET COUNT 117 x10^3/uL (140-400); RED BLOOD COUNT 5.12 x10^6/uL (3.50-5.40)
[2020-07-21] MEDS ORDERED: IV NORMAL SALINE 1,000ML 1,000 ML IV ONE (11:15)
[2020-07-21 11:19] LABS: CALCIUM 8.7 mg/dL (8.5-10.1); CREATININE 0.8 mg/dL (0.6-1.0); GFR 68.3; POTASSIUM 3.3 mmol/L (3.5-5.1)
[2020-07-21 11:31] LABS: ALBUMIN 3.6 g/dL (3.4-5.0); DIRECT BILIRUBIN 0.2 mg/dL (0.0-0.2); TOTAL BILIRUBIN 0.6 mg/dL (0.2-1.0); TOTAL PROTEIN 7.7 g/dL (6.4-8.2)
--- NOTE | 2020-07-21 11:58 | RAD ---
CT HEAD/BRAIN WO Date: 07/21/2020 11:02 AM Clinical Indication: Reason: gen weakness / Spl. Instructions: / History: Comparison: None. Technique: 5 mm axial tomographic images were obtained of the head without contrast. These were view ed on brain and bone windows. One or more of the following dose reduction techniques were utilized: A utomated exposure control (AEC), Adjustment of mA and/or kV according to patient size, Use of iterati ve reconstruction technique such as ASiR, CT scan done according to ALARA and image gently/image irving ly Findings: Mild generalized cerebral and cerebellar volume loss. Mild nonspecific periventricular hypoattenuatio n, most commonly seen with chronic small vessel ischemic disease. Calcified atherosclerosis of the bi lateral cavernous and paraclinoid internal carotid arteries and intracranial vertebral arteries. No intra- or extra-axial mass or fluid collection. No acute hemorrhage. The ventricles are normal in size, shape, and morphology. The xavier-white matter junction is normal. The subarachnoid cisterns are patent. The visualized paranasal sinuses are normal. The visualized portions of the orbits and globes are no rmal. The mastoid air cells are clear. The addiction professional topogram shows no lytic lesion or fracture. Impression: No acute intracranial process. Mild cerebral volume loss. Mild chronic small vessel ischemic disease. Electronically signed by: Jose Antonio Crockett MD (07/21/2020 11:56 AM) [id number]
[2020-07-21] MEDS ORDERED: CEFDINIR 300 MG CAPSULE PO ONE (12:00)
[2020-07-21 12:11] LABS: BACTERIA,URINE 0 /HPF (0-FEW); BILIRUBIN,URINE NEG (NEG); CLARITY,URINE CLEAR; COLOR,URINE AMBER; GLUCOSE,URINE NEG (NEG); HYALINE CASTS, URINE FEW /HPF; NITRITE,URINE NEG (NEG); RBC,URINE 0 /HPF (0-2); SQUAMOUS EPITHELIAL CELL,UR FEW /LPF; UROBILINOGEN,URINE 0.2 mg/dL (0.2 mg/dL)
--- NOTE | 2020-07-21 12:14 | RAD ---
XR CHEST 1V Clinical Indication: Reason: gen weak Comparison: AP chest July 14, 2020. Findings: Atherosclerotic aortic arch. The cardiomediastinal silhouette is normal. Lungs are clear. There is no pneumothorax. No pleural effusion is appreciated. No acute bone abnormality. Old fracture of the lef t humeral neck. IMPRESSION: No acute cardiopulmonary process. Electronically signed by: Thierry Boone MD (07/21/2020 12:11 PM) [id number]
[2020-07-21] MEDS ORDERED: IV NORMAL SALINE 1,000ML 1,000 ML IV SCH (13:15)
[2020-07-21 13:54] VITALS: BP 132/56
--- NOTE | 2020-07-21 13:57 | NUR ---
PATIENT IS 84 Y O FEMALE ARRIVED VIA EMS . PATIENT IS A/O X4, CALM AND COMPLIANT UPON ASSESSMENT, C/O WEAKNESS AND ABDOMINAL DISCOMFORT. VS OBTAINED AND ARE STABLE. PATIENT WAS ORIENTED TO THE ROOM AND HOSPITAL POLICIES. PATIENT REQUESTED TO HAVE SOME SNACK, STATED SHE IS HUNGRY, DENIED PAIN, DENIED N/V.
--- NOTE | 2020-07-21 14:41 | PREOP HP ---
DATE OF SERVICE: 07/21/2020 HISTORY OF PRESENT ILLNESS: The patient is an 84-year-old female patient who was discharged only few days ago, specifically on 07/19/2019 after she was admitted here for COVID-19 infection. At that time, she said that she felt generally much better. All her aches and pains and generalized weakness had resolved. She did have Crohn's disease and continued to have some loose bowel movement, but at that time, did not seem to be worse than her usual. She actually drove herself back home. Apparently, she was discharged home with home health, only to come back this morning complaining of generalized weakness. She stated that she woke up at around 2 o'clock in the morning. She had what seemed to have some feeling sick and had some nausea and vomiting. She also complained of pain, mostly in her left lower quadrant; and according to her, she was unable even to urinate and she was brought to the Emergency Room for further evaluation and treatment. She has had lab work in the Emergency Room that was mostly unremarkable except for hypokalemia. CT scan of the head was unremarkable and a chest x-ray was also unremarkable. PAST MEDICAL HISTORY: Significant for Crohn's disease, gastroesophageal reflux disease, diabetes, and hyperlipidemia. She had had COVID-19 infection. PAST SURGICAL HISTORY: Significant for appendectomy, cholecystectomy, right hemicolectomy, and hip replacement. ALLERGIES: She is allergic to SULFA DRUGS, PNEUMOCOCCAL VACCINES, TETANUS, and DIPHTHEROID TOXINS. FAMILY HISTORY: Her father of heart disease at the age of 59. Mother of unspecified cancer at the age of 84. Her mother also had dementia. SOCIAL HISTORY: She lives alone. She is a nonsmoker and nondrinker. Has a daughter that lives around; however, she is fairly independent normally. MEDICATIONS: She is currently on following medications: She is on cholecalciferol 50,000 units weekly. She is on losartan potassium 50 mg once a day, glimepiride 2 mg once a day. She is on verapamil hydrochloride extended release 180 mg once a day, atorvastatin calcium 80 mg at bedtime. She is on Protonix 40 mg once a day. PHYSICAL EXAMINATION: GENERAL: On arrival to the Emergency Room, she looked well and was clearly in no apparent respiratory distress. No pallor, jaundice, cyanosis or thyromegaly. No jugular venous distention. No lower limb edema. VITAL SIGNS: Her heart rate was 79, blood pressure was 140/77, temperature was 98.5, respiratory rate was 20, and oxygen saturation was 95%. HEAD, EYES, EARS, NOSE AND THROAT: Showed normocephalic, atraumatic. NECK: Supple. HEART: Showed normal first and second heart sounds. No gallop or murmur. CHEST: Clear to auscultation. No crepitation or rhonchi. ABDOMEN: Distended, soft, with tenderness mostly in the left lower quadrant. NEUROLOGIC: She was awake, alert, responding appropriately. All cranial nerves intact. EXTREMITIES: She moves extremities without difficulty. LABORATORY DATA: Her lab work on arrival this morning to the Emergency Room showed a white cell count 5000, hemoglobin 14.4, hematocrit 43.7, MCV 85, and platelet count of 117,000 with normal manual differential. Her chemistry showed a serum sodium 136, potassium 3.3, chloride 103, bicarbonate 21, anion gap of 12, BUN 12, creatinine 0.8, estimated GFR was 68 mL per minute, her glucose 132 and lactic acid was 1.4, calcium was 8.7. Total bilirubin, AST, ALT, alkaline phosphatase were normal. Her troponin was 0.033. Her beta natriuretic peptide was 182. Total protein was 7.7, albumin was 3.6, lipase 172. Urinalysis showed the urine was gianna, clear. Her pH was 5, specific gravity is 1.025, a small amount of protein. The urine was negative for glucose, ketones, blood, nitrite and leukocyte esterase. There are no rbc's, 1-4 wbc's, very few bacteria. Her chest x-ray showed atherosclerotic aortic arch. The cardiomediastinal silhouette is normal. Lungs are clear. There is no pneumothorax. No pleural effusion is appreciated. No acute bone abnormality. Old fracture of the left humeral neck. CT scan of the head showed no acute intracranial process, mild cerebral volume loss, mild chronic small vessel ischemic disease. ASSESSMENT AND PLAN: The patient was admitted to the hospital. We will replenish her potassium. Continue other medications. I will arrange for her to have a CT scan of the abdomen and pelvis with IV contrast. She also has COVID infection, although she has no hypoxia; and other than generalized weakness, she is otherwise asymptomatic. CRISTI TERRAZAS MD DR: TSERING/fabienne JOB#: [id number] / [id number]
[2020-07-21] MEDS ORDERED: IOHEXOL 300 MG/ML 75 ML VIAL. IV ONE (14:45)
--- NOTE | 2020-07-21 16:33 | RAD ---
CT scan of the abdomen and pelvis without contrast 07/21/2020 CLINICAL HISTORY: Severe left lower quadrant abdominal pain. TECHNIQUE: Unenhanced, contiguous, 3 mm axial sections were obtained through the abdomen and pelvis. This study was originally ordered with contrast; however, the patient's IV infiltrated prior to contr ast administration and was unable unable to be administered. One or more of the following individualized dose reduction techniques were utilized for this study: 1. Automated exposure control. 2. Adjustment of the mA and/or kV according to patient size. 3. Use of iterative reconstruction technique. FINDINGS: Images through the lung bases demonstrate right lower lobe atelectasis and/or infiltrate. M inimal dependent subsegmental atelectasis in the left lower lobe. The liver parenchyma has a decreased attenuation consistent with fatty infiltration. Calcified granul omas are seen involving the spleen. The pancreas, adrenal glands and left kidney are within normal li mits. A 5.4 cm rounded low-attenuation lesion is seen involving the posterior pole of the right kidne y. This likely represents a cyst. No further imaging evaluation is recommended. A 4 mm punctate calci fication is seen involving the posterior superior aspect of the right kidney which may represent nono bstructing calculus. Atherosclerotic calcification of the abdominal aorta and its branches is seen. The abdominal aorta ta pers normally. The gallbladder is not visualized consistent with a cholecystectomy. No free fluid or free air is within abdomen. There is no evidence of bowel obstruction. Images through the pelvis demonstrate the urinary bladder to be contracted. The uterus is not visuali zed consistent with hysterectomy. No adnexal mass is seen. Calcifications are seen within the pelvis consistent with phleboliths. No free fluid is seen. The patient is post right CHRISTELLE. Minimal S-shaped c urvature of the thoracolumbar spine is seen. Degenerative changes are seen involving the lower thorac ic and throughout the lumbar spine along with the left hip. IMPRESSION: 1. Right lower lobe atelectasis and/or infiltrate. 2. . No acute abnormality is seen involving the abdomen or pelvis. Electronically signed by: Abdirashid Patricia MD (07/21/2020 4:31 PM) [id number]
[2020-07-21] MEDS: PANTOPRAZOLE IV 40 MG VIAL. IVP SCH (17:50)
[2020-07-21] MEDS: POTASSIUM CL 40MEQ D5-0.45NACL 1,000 ML IV SCH (17:51)
[2020-07-21 18:25] VITALS: BP 124/45
[2020-07-21] MEDS: VERAPAMIL SR 180 MG TABLET.ER. PO SCH (20:17)
[2020-07-21] MEDS: BALSALAZIDE 750 MG PO SCH (20:18)
[2020-07-21] MEDS: ATORVASTATIN CALCIUM 20 MG TABLET PO SCH (20:18)
[2020-07-21 23:00] VITALS: BP 103/41
[2020-07-22 05:59] LABS: BASO % 1 % (0-3); EOS % 0 % (0-3); HEMATOCRIT 38.1 % (36.0-47.0); HEMOGLOBIN 12.6 g/dL (12.0-15.5); LYMPH # 1.5 x10^3/uL (1.0-4.8); LYMPH % 34 % (24-48); MEAN CORPUSCULAR HEMOGLOBIN 28 pg (25-35); MEAN CORPUSCULAR HGB CONC 33 g/dL (31-37); MEAN CORPUSCULAR VOLUME 84 fL (79-100); MONO # 0.4 x10^3/uL (0.0-1.1); MONO % 9 % (0-9); NEUT # 2.4 x10^3uL (1.8-7.7); NEUT % 56 % (31-73); PLATELET COUNT 137 x10^3/uL (140-400); RED BLOOD COUNT 4.54 x10^6/uL (3.50-5.40); RED CELL DISTRIBUTION WIDTH 14.7 % (11.5-14.5); WHITE BLOOD COUNT 4.2 x10^3/uL (4.0-11.0)
[2020-07-22 06:03] VITALS: BP_SYST 124; BP_SYST 140; BP_DIAS 57; BP_DIAS 77
[2020-07-22 06:10] LABS: ALBUMIN/GLOBULIN RATIO 0.8 (1.0-1.7); CALCIUM 8.3 mg/dL (8.5-10.1); CREATININE 0.9 mg/dL (0.6-1.0); GFR 59.7; POTASSIUM 3.1 mmol/L (3.5-5.1); TOTAL BILIRUBIN 0.5 mg/dL (0.2-1.0)
[2020-07-22] MEDS: PANTOPRAZOLE IV 40 MG VIAL. IVP SCH (08:18)
[2020-07-22] MEDS: LOSARTAN 50 MG TABLET. PO SCH (08:18)
[2020-07-22] MEDS: BALSALAZIDE 750 MG PO SCH ×2 (08:18→20:26)
[2020-07-22] MEDS: POTASSIUM CL 40MEQ D5-0.45NACL 1,000 ML IV SCH ×3 (08:18→21:47)
[2020-07-22] MEDS: GLIMEPIRIDE 2 MG TABLET PO SCH ×2 (08:18→09:00)
[2020-07-22] MEDS ORDERED: ONDANSETRON PF 4 MG/2 ML VIAL. IVP PRN (10:00)
--- NOTE | 2020-07-22 10:28 | PN ---
DATE: 07/22/2020 SUBJECTIVE: The patient is resting, slightly propped up in bed, in no apparent respiratory distress. She continued to complain of nausea, but no vomiting. She has also diffuse abdominal discomfort and recurrent bouts of loose bowel movement. She has so far 5 bowel movements this morning. There was no blood. Denied any chills, rigors, or fever. Denied any dizziness or lightheadedness. PHYSICAL EXAMINATION: GENERAL: When I examined her, there was no pallor, jaundice, cyanosis or thyromegaly. No jugular venous distention. No lower limb edema. VITAL SIGNS: Her heart rate was 66, blood pressure was 124/57, temperature 97.2, respiratory rate 20, and oxygen saturation was 93% on room air. HEAD, EYES, EARS, NOSE AND THROAT: Showed normocephalic, atraumatic. NECK: Supple. HEART: Showed normal first and second heart sounds. No gallop or murmur. CHEST: Clear to auscultation. No crepitation or rhonchi. ABDOMEN: Distended, soft, nontender. All hernial orifice intact. Bowel sounds normal. NEUROLOGIC: She was grossly intact. Her intake and output are incompletely recorded. LABORATORY DATA: Her lab work this morning showed that her white cell count is 4200; hemoglobin 12.6; hematocrit 38; MCV 84 and platelet count of 137,000 with normal manual differential. Her chemistry showed serum sodium was 138, potassium 3.1, chloride 104, bicarbonate 21, anion gap of 13, BUN 11, creatinine 0.9, estimated GFR was 59 mL per minute. Her glucose 130, calcium was 8.3. Total bilirubin, AST, ALT, alkaline phosphatase were normal. Total protein 7, albumin was 3. Urinalysis is essentially unremarkable. ASSESSMENT: 1. COVID-19 infection. 2. Recurrent bouts of diarrhea, likely gastroenteritis versus exacerbation of her Crohn's disease. 3. Gastroesophageal reflux disease. 4. Type 2 diabetes mellitus. 5. Hyperlipidemia. PLAN: My plan is to start her on Zofran and send stool for C. diff as well as stool for culture and sensitivity looking particularly for salmonella, Shigella and Campylobacter. I will contact her neurology physician assistant to see whether steroids are indicated. We did continue with her medication for her Crohn's disease that is the balsalazide 750 mg, she takes 3 capsules twice a day. CRISTI TERRAZAS MD DR: TSERING/fabienne JOB#: [id number] / [id number]
[2020-07-22 11:03] VITALS: BP 107/52
[2020-07-22 11:32] LABS: FECAL OB PT NEGATIVE (NEG)
[2020-07-22] MEDS: POTASSIUM CHLORIDE 20 MEQ TABLET.ER. PO SCH ×2 (15:06→20:26)
[2020-07-22 15:31] VITALS: BP 103/52
[2020-07-22 16:41] LABS: CREATININE 0.9 mg/dL (0.6-1.0); GFR 59.7; POTASSIUM 3.5 mmol/L (3.5-5.1)
[2020-07-22 19:36] VITALS: BP 106/56
[2020-07-22] MEDS: ATORVASTATIN CALCIUM 20 MG TABLET PO SCH (20:25)
[2020-07-22] MEDS: VERAPAMIL SR 180 MG TABLET.ER. PO SCH (20:25)
[2020-07-22 23:02] VITALS: BP 96/49
[2020-07-22] MEDS: ACETAMINOPHEN 325 MG TABLET PO PRN (23:23)
[2020-07-23 05:58] VITALS: BP 114/61
[2020-07-23 07:29] LABS: HEMATOCRIT 36.4 % (36.0-47.0); HEMOGLOBIN 11.7 g/dL (12.0-15.5); RED BLOOD COUNT 4.24 x10^6/uL (3.50-5.40); RED CELL DISTRIBUTION WIDTH 15.1 % (11.5-14.5); WHITE BLOOD COUNT 3.9 x10^3/uL (4.0-11.0)
[2020-07-23] MEDS: BALSALAZIDE 750 MG PO SCH (07:37)
[2020-07-23] MEDS: POTASSIUM CL 40MEQ D5-0.45NACL 1,000 ML IV SCH (07:37)
[2020-07-23] MEDS: PANTOPRAZOLE IV 40 MG VIAL. IVP SCH (07:38)
[2020-07-23] MEDS: GLIMEPIRIDE 2 MG TABLET PO SCH ×2 (07:38→08:23)
[2020-07-23] MEDS: POTASSIUM CHLORIDE 20 MEQ TABLET.ER. PO SCH (07:38)
[2020-07-23] MEDS: LOSARTAN 50 MG TABLET. PO SCH (07:39)
[2020-07-23 07:43] LABS: ALBUMIN 2.6 g/dL (3.4-5.0); ALBUMIN/GLOBULIN RATIO 0.7 (1.0-1.7); CREATININE 1.4 mg/dL (0.6-1.0); GFR 35.8; POTASSIUM 4.4 mmol/L (3.5-5.1); TOTAL BILIRUBIN 0.3 mg/dL (0.2-1.0); TOTAL PROTEIN 6.3 g/dL (6.4-8.2)
[2020-07-23 11:34] VITALS: BP 110/56
[2020-07-23] MEDS: IV NORMAL SALINE 1,000ML 1,000 ML IV SCH ×2 (13:31→22:11)
[2020-07-23] MEDS ORDERED: ACETAMINOPHEN 325 MG TABLET PO PRN (14:30)
[2020-07-23] MEDS: ACETAMINOPHEN 325 MG TABLET PO PRN ×2 (14:39→20:11)
[2020-07-23 15:37] VITALS: BP 107/51
--- NOTE | 2020-07-23 18:02 | PN ---
DATE: 07/23/2020 SUBJECTIVE: The patient is sitting at the edge of the bed, complaining of nausea and also pain in her right maxillary sinus area radiating to her right ear. Her potassium has normalized and her diarrhea has subsided. PHYSICAL EXAMINATION: GENERAL: When I examined her, she looked well and was clearly in no apparent respiratory distress. No pallor, jaundice, cyanosis or thyromegaly. No jugular venous distention. No limb edema. VITAL SIGNS: Her heart rate was 60, blood pressure was 110/56, temperature 97.8, respiratory rate 20, and oxygen saturation was 95%. HEAD, EYES, EARS, NOSE AND THROAT: Normocephalic, atraumatic. NECK: Supple. HEART: Showed normal first and second heart sounds. No gallop, rub or murmur. CHEST: Clear to auscultation. No crepitation or rhonchi. ABDOMEN: Distended, soft, nontender. NEUROLOGIC: She is awake, alert, responding appropriately. She moves all extremities without difficulty. Examination of her face showed that she has marked tenderness in the right maxillary sinus and also tenderness on palpation of the right ear. Her intake was 616, output was recorded. LABORATORY DATA: Her lab work this morning showed a white cell count of 3900, hemoglobin 11.7, hematocrit 36, MCV 86 and platelet count of 121,000. Her chemistry this morning showed a serum sodium 137, potassium 4.4, chloride 109, bicarbonate 18, anion gap of 10, BUN 12, creatinine was 1.4, estimated GFR was 55 mL per minute. Her glucose was 130, calcium was 8. Total bilirubin, AST, ALT, alkaline phosphatase were normal. Total protein 6.3, albumin was 2.6. Her stool for C. diff toxins were negative and her stool for occult blood was negative. Her stool for Campylobacter, E. coli, Shiga toxins and Salmonella as well as Shigella were all negative. ASSESSMENT: 1. COVID-19 infection. 2. Recurrent bouts of diarrhea, likely gastroenteritis versus exacerbation of Crohn's disease that subsided. Her stool for C. diff toxins were negative. Stool for PCR for Shigella, Salmonella and E. coli, Campylobacter were negative. 3. Acute kidney injury. Her creatinine has risen to 1.4. 4. Hypokalemia, resolved. Her potassium is up to 4.4. 5. Gastroesophageal reflux disease. 6. Type 2 diabetes mellitus. 7. Hyperlipidemia. PLAN: My plan is to discontinue her IV fluid with potassium and continue with normal saline at 100 mL, started on Tylenol 650 every 4 hours as needed for pain, Augmentin 500/125 one tablet twice a day with food and I discontinued her balsalazide. I would repeat all her lab works tomorrow. CRISTI TERRAZAS MD DR: TSERING/fabienne JOB#: [id number] / [id number]
[2020-07-23 19:35] VITALS: BP 104/53
[2020-07-23] MEDS: ATORVASTATIN CALCIUM 20 MG TABLET PO SCH (20:11)
[2020-07-23] MEDS: AMOXICILLIN/K CLAV 500/125MG TABLET. PO SCH (20:11)
[2020-07-23] MEDS: LACTOBACILLUS RHAMNOSUS GG 1 CAPSULE. PO SCH (20:11)
[2020-07-23] MEDS: VERAPAMIL SR 180 MG TABLET.ER. PO SCH (20:12)
[2020-07-23 23:25] VITALS: BP 99/62
[2020-07-24 06:25] VITALS: BP 108/44
[2020-07-24] MEDS: AMOXICILLIN/K CLAV 500/125MG TABLET. PO SCH ×2 (08:38→20:31)
[2020-07-24] MEDS: LACTOBACILLUS RHAMNOSUS GG 1 CAPSULE. PO SCH ×2 (08:38→20:31)
[2020-07-24] MEDS: GLIMEPIRIDE 2 MG TABLET PO SCH (08:38)
[2020-07-24] MEDS: PANTOPRAZOLE IV 40 MG VIAL. IVP SCH (08:38)
[2020-07-24] MEDS: IV NORMAL SALINE 1,000ML 1,000 ML IV SCH ×2 (08:40→20:31)
[2020-07-24 10:43] VITALS: BP 120/53
[2020-07-24 13:04] LABS: HEMATOCRIT 37.9 % (36.0-47.0); HEMOGLOBIN 12.3 g/dL (12.0-15.5); RED BLOOD COUNT 4.45 x10^6/uL (3.50-5.40); WHITE BLOOD COUNT 4.5 x10^3/uL (4.0-11.0)
[2020-07-24] MEDS ORDERED: DEXAMETHASONE 4 MG TABLET PO SCH (13:15)
[2020-07-24] MEDS: PANTOPRAZOLE 40 MG TABLET. PO SCH (13:20)
[2020-07-24] MEDS: SIMETHICONE 80 MG TAB.CHEW PO PRN ×2 (13:20→20:31)
[2020-07-24 13:48] LABS: ALBUMIN 2.8 g/dL (3.4-5.0); ALBUMIN/GLOBULIN RATIO 0.7 (1.0-1.7); CALCIUM 8.4 mg/dL (8.5-10.1); CREATININE 1.3 mg/dL (0.6-1.0); POTASSIUM 3.9 mmol/L (3.5-5.1); TOTAL BILIRUBIN 0.3 mg/dL (0.2-1.0); TOTAL PROTEIN 6.8 g/dL (6.4-8.2)
[2020-07-24] MEDS ORDERED: DEXTROSE 50% 25 GM / 50ML DISP.SYRIN. IV PRN (14:00)
[2020-07-24 14:16] VITALS: BP 124/43
[2020-07-24] MEDS: predniSONE 20 MG TABLET PO SCH ×2 (15:07→20:31)
[2020-07-24] MEDS: ACETAMINOPHEN 325 MG TABLET PO PRN ×2 (16:25→21:08)
[2020-07-24] MEDS: NYSTATIN TOPICAL POWDER 15GM BOTTLE. TP SCH ×2 (16:25→21:00)
--- NOTE | 2020-07-24 16:57 | NUR ---
NSG NOTE; PT CONT TO HAVE LOOSE STOOLS AND ABD CRAMPING. DAUGHTER REQUESTED TRANSFER TO [facility] TO BE NEAR PT'S GI DOCTOR BUT THAT HOSPITAL HAS NO AVAILABLE BEDS.
[2020-07-24] MEDS: INSULIN LISPRO 300 UNITS/3 ML VIAL. SQ SCH (17:00)
--- NOTE | 2020-07-24 18:17 | PN ---
DATE: 07/24/2020 SUBJECTIVE: The patient is resting, slightly propped up in bed, in no apparent distress. She did have multiple episodes of diarrhea last night and only 1 episode this morning. She still continues to complain of cramping pain, mostly in the suprapubic area; however, denied any nausea or vomiting. Denied any chills, rigors, or fever. PHYSICAL EXAMINATION: GENERAL: When I examined her this morning, she was somewhat pale, but no jaundice or cyanosis. No lymphadenopathy, no thyromegaly. No jugular venous distention. No lower limb edema. VITAL SIGNS: Her heart rate was 57, blood pressure was 120/53, temperature was 98.7, respiratory rate was 14, and oxygen saturation was 94%. HEAD, EYES, EARS, NOSE AND THROAT: Showed normocephalic, atraumatic. NECK: Supple. HEART: Normal first and second heart sounds. No gallop, rub, or murmur. CHEST: Shows central trachea. Equal bilateral expansion, air entry, vesicular sounds. No crepitation or rhonchi. ABDOMEN: Distended, soft, and nontender. There is no guarding or rigidity. No organomegaly. All hernial orifices intact. Bowel sounds normal. NEUROLOGIC: She is awake, alert, and responding appropriately. All cranial nerves intact. She moves extremities without difficulty. Her intake over the last 24 hours was 2059, no output was recorded. LABORATORY DATA: As of this morning, her white cell count was 4500, hemoglobin 12.3, hematocrit 37.9, MCV 85, and platelet count of 132,000. This morning, chemistry is still pending at the time of this dictation. As of yesterday, her serum sodium was 137, potassium 4.4, chloride 109, bicarbonate 18, anion gap of 10, BUN 12, creatinine 1.4, estimated GFR was 35 mL per minute. Her glucose was 130, calcium was 8. Total bilirubin, AST, ALT, and alkaline phosphatase were normal. Total protein 6.3, albumin was 2.6. ASSESSMENT: 1. COVID-19 infection. 2. Recurrent bouts of diarrhea, likely gastroenteritis versus exacerbation of her Crohn's disease versus a manifestation of COVID-19 infection. Her stool for C. diff toxins is negative and the enteric panel was negative for Shigella, salmonella, E. coli, and Campylobacter. 3. Acute kidney injury. Her creatinine has risen up to 1.4. 4. Hypokalemia, resolved. Her serum potassium is up to 4.4. 5. Gastroesophageal reflux disease. 6. Type 2 diabetes mellitus. 7. Hyperlipidemia. PLAN: To start her on prednisone 40 mg twice a day as recommended by her Gastroenterology team at [facility]. Meanwhile, I would continue with Tylenol for pain and Augmentin for her right maxillary sinusitis. The patient can be discharged obviously once her symptoms subsided along with prolonged tapering course of steroids and needs an appointment to be followed by Dr. De Santiago at the [facility] sometime perhaps next week. CRISTI TERRAZAS MD DR: TSERING/fabienne JOB#: [id number] / [id number]
[2020-07-24 20:29] VITALS: BP 127/53
[2020-07-24] MEDS: ATORVASTATIN CALCIUM 20 MG TABLET PO SCH (20:31)
[2020-07-24] MEDS: VERAPAMIL SR 180 MG TABLET.ER. PO SCH (20:33)
[2020-07-24 23:05] VITALS: BP 112/48
[2020-07-25 05:23] VITALS: BP 133/62
[2020-07-25] MEDS: IV NORMAL SALINE 1,000ML 1,000 ML IV SCH ×2 (05:30→15:30)
[2020-07-25 06:45] LABS: CALCIUM 8.1 mg/dL (8.5-10.1); CREATININE 0.9 mg/dL (0.6-1.0); GFR 59.7; POTASSIUM 3.5 mmol/L (3.5-5.1)
[2020-07-25] MEDS: INSULIN LISPRO 300 UNITS/3 ML VIAL. SQ SCH ×3 (08:00→17:00)
[2020-07-25] MEDS: NYSTATIN TOPICAL POWDER 15GM BOTTLE. TP SCH ×2 (09:00→20:59)
[2020-07-25] MEDS ORDERED: CHOLECALCIFEROL (VITAMIN D3) 50,000 UNIT CAPSULE PO SCH (09:00)
[2020-07-25] MEDS: PANTOPRAZOLE 40 MG TABLET. PO SCH ×2 (09:05→09:07)
[2020-07-25] MEDS: predniSONE 20 MG TABLET PO SCH ×2 (09:07→20:57)
[2020-07-25] MEDS: ACETAMINOPHEN 325 MG TABLET PO PRN (09:07)
[2020-07-25] MEDS: GLIMEPIRIDE 2 MG TABLET PO SCH (09:07)
[2020-07-25] MEDS: LACTOBACILLUS RHAMNOSUS GG 1 CAPSULE. PO SCH ×2 (09:07→20:58)
[2020-07-25] MEDS: AMOXICILLIN/K CLAV 500/125MG TABLET. PO SCH ×2 (09:07→20:59)
[2020-07-25] MEDS: SIMETHICONE 80 MG TAB.CHEW PO PRN (09:33)
[2020-07-25 11:08] VITALS: BP 133/65
--- NOTE | 2020-07-25 13:56 | PN ---
DATE: SUBJECTIVE: The patient is sitting comfortably in her chair, in no apparent distress. She continued to complain of severe pain in the right side of the face involving his right maxillary sinus and right ear. She continued to have some diarrhea. She had about 3 episodes this morning. She continued to have abdominal discomfort. PHYSICAL EXAMINATION: GENERAL: When I examined her, however, she looked pale, but no jaundice or cyanosis. No lymphadenopathy, no thyromegaly. No jugular venous distention. No limb edema. VITAL SIGNS: Her heart rate was 57, blood pressure was 133/65, temperature was 97.1, respiratory rate was 20, and oxygen saturation was 97% on room air. HEAD, EYES, EARS, NOSE AND THROAT: Showed normocephalic, atraumatic. NECK: Supple. HEART: Showed normal first and second heart sounds. No gallop, rub or murmur. CHEST: Clear to auscultation. No crepitation or rhonchi. ABDOMEN: Distended, soft, nontender. NEUROLOGIC: She is awake, alert, responding appropriately. All cranial nerves intact. She moves extremities without difficulty. She ambulates without assistance or assistive devices. Her intake was 4785, output was incompletely recorded. LABORATORY DATA: Her lab work this morning, most recent white cell count was 4500, hemoglobin 12, hematocrit 37, MCV 85 and platelet count of 132,000. Her chemistry showed a serum sodium 141, potassium 3.5, chloride 110, bicarbonate 16, anion gap of 15, BUN of 11, creatinine 0.9, estimated GFR was 59 mL per minute. Her glucose was 92, calcium was 8.1. Her urinalysis essentially unremarkable. Her stool for occult blood was negative. The enteric patent panel showed that she is negative for Campylobacter, E. coli Shiga toxin, salmonella, Shigella. Her stool for C. diff toxins are negative. ASSESSMENT: 1. COVID-19 infection. 2. Recurrent bouts of diarrhea, likely gastroenteritis versus exacerbation of her Crohn's disease versus administration of COVID-19 infection. Her stool for C. diff toxins were negative. The enteric panel was negative for Shigella, salmonella, E. coli and Campylobacter. 3. Acute kidney injury has improved with creatinine came down from 1.4 to 0.9. 4. Hypokalemia, improved to 4.4. However, this morning, her potassium is down to 3.4. She also has metabolic acidosis with a bicarbonate of only 16 compared to 21 on admission. She also has what seemed to be right maxillary and sinusitis as well as right-sided otitis media for which she is on amoxicillin. OTHER MEDICAL PROBLEMS: Include: A. Gastroesophageal reflux disease. B. Type 2 diabetes mellitus. C. Hyperlipidemia. PLAN: My plan is to continue with prednisone 40 mg twice a day as recommended by the lay midwife team at [facility]. Continue with Tylenol and Augmentin for right maxillary sinusitis. I will arrange for her to have a maxillofacial CT scan and I will discuss with her the options of perhaps discharging to a detention facility. CRISTI TERRAZAS MD DR: TSERING/fabienne JOB#: [id number] / [id number]
--- NOTE | 2020-07-25 15:11 | RAD ---
CT MAXILLOFACIAL WITHOUT CONTRAST History: Reason: worsening facial pain mostly on the right side / Spl. Instructions: / History: Comparison: Head CT July 21, 2020 Technique: Noncontrast CT imaging was performed of the maxillofacial. Coronal and sagittal reconstruc tions were performed. Exposure: One or more of the following individualized dose reduction techniques were utilized for thi s examination: 1. Automated exposure control 2. Adjustment of the mA and/or kV according to patient size 3. Use of iterative reconstruction technique. Findings: No acute maxillofacial fracture. Orbits are unremarkable. Paranasal sinuses and mastoid air cells are clear. Partially empty sella, often incidental. Mild multilevel cervical spondylosis. Edentulous. Impression: 1. 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 Electronically signed by: Sohail Pierre DO (07/25/2020 3:09 PM) [id number]
[2020-07-25 15:23] VITALS: BP 140/64
[2020-07-25 19:49] VITALS: BP 114/58
[2020-07-25] MEDS: ATORVASTATIN CALCIUM 20 MG TABLET PO SCH (20:57)
[2020-07-25] MEDS: VERAPAMIL SR 180 MG TABLET.ER. PO SCH (20:58)
[2020-07-25] MEDS: POTASSIUM CHLORIDE 20 MEQ TABLET.ER. PO SCH (20:58)
[2020-07-25] MEDS: SODIUM BICARBONATE 650 MG TABLET PO SCH (21:00)
[2020-07-25 22:22] VITALS: BP 140/69
[2020-07-26] MEDS: SIMETHICONE 80 MG TAB.CHEW PO PRN ×2 (05:18→08:26)
[2020-07-26 05:24] VITALS: BP 98/59
[2020-07-26] MEDS: PANTOPRAZOLE 40 MG TABLET. PO SCH (07:30)
[2020-07-26] MEDS: SODIUM BICARBONATE 650 MG TABLET PO SCH (08:26)
[2020-07-26] MEDS: predniSONE 20 MG TABLET PO SCH (08:26)
[2020-07-26] MEDS: AMOXICILLIN/K CLAV 500/125MG TABLET. PO SCH (08:26)
[2020-07-26] MEDS: GLIMEPIRIDE 2 MG TABLET PO SCH (08:26)
[2020-07-26] MEDS: POTASSIUM CHLORIDE 20 MEQ TABLET.ER. PO SCH (08:26)
[2020-07-26] MEDS: LACTOBACILLUS RHAMNOSUS GG 1 CAPSULE. PO SCH (08:26)
[2020-07-26] MEDS: NYSTATIN TOPICAL POWDER 15GM BOTTLE. TP SCH (08:27)
[2020-07-26] MEDS: INSULIN LISPRO 300 UNITS/3 ML VIAL. SQ SCH (08:28)
--- NOTE | 2020-07-26 08:52 | PN ---
DATE: 07/26/2020 ATTENDING PHYSICIAN: Balbir Barajas MD SUBJECTIVE: No new complaints. She has not had any further diarrhea. OBJECTIVE FINDINGS: VITAL SIGNS: Blood pressure today is 140/69 mmHg, pulse 60 and regular, temperature 98.4 degrees Fahrenheit, oxygen saturation 92% on room air. GENERAL: Physical exam is unremarkable. LUNGS: Clear. CARDIOVASCULAR: Showed regular heart tones. ABDOMEN: Soft. There is no edema. NEUROLOGIC: Focally intact. ASSESSMENT: 1. An 84-year-old female with COVID-19 infection recently, her rapid screen is negative at this time. 2. Recurrent bouts of diarrhea, likely gastroenteritis. She also has underlying Crohn's disease. 3. Acute kidney injury that has improved. 4. Hypokalemia, replaced. 5. Sinusitis on amoxicillin, improved. 6. Gastroesophageal reflux disease. 7. Type 2 diabetes. PLAN: 1. Prednisone as recommended by her GI team at [facility]. 2. Augmentin for right maxillary sinusitis. 3. Maxillofacial CT scan was unremarkable. 4. We are awaiting placement at [facility] for subacute rehabilitation. HILARIO GLOVER MD DR: KATHERYN/fabienne JOB#: [id number] / [id number]
[2020-07-26] MEDS ORDERED: AMOX1TAB58 PO (10:04)
[2020-07-26] MEDS ORDERED: PANT40TA3 PO (10:05)
[2020-07-26] MEDS ORDERED: NYST15PO9 TP (10:06)
[2020-07-26] MEDS ORDERED: PRED20TA PO (10:18)
--- NOTE | 2020-07-26 12:06 | NUR ---
PT DISCHARGED HOME WITH HOME HEALTH. PT IS STABLE AT TIME OF DISCHARGE. PT IS GIVEN ALL DISCHARGE AND FOLLOW UP INSTRUCTIONS. PTS PRESCRIPTIONS CALLED INTO [facility] PER DR. GLOVER PATIENTS IV IS REMOVED TELE MONITOR DC'D PT IS WC'D OFF OF UNIT ACCOMPANIED BY STAFF.
--- NOTE | 2020-07-26 13:19 | DS ---
DATE OF DISCHARGE: 07/26/2020 ATTENDING PHYSICIAN: Dr. Barajas. FINAL DISCHARGE DIAGNOSES: 1. Recurrent diarrhea. 2. History of Crohn's disease. 3. Hypokalemia, corrected. 4. Generalized weakness. 5. Recent COVID-19 infection, resolved. HISTORY AND PHYSICAL: This is an 84-year-old female, who was just discharged home 2 days ago. She came back to the ED complaining of generalized weakness. She is still having occasional diarrhea, although we never did not see any evidence of this. CT of the head was unremarkable. Chest x-ray was also unremarkable. She has had generalized weakness and recurrent exacerbation of Crohn's disease. She sees a keyboarding clerk in the [facility] system. She has wanted to go to [facility] for evaluation. However, she was deferred to our hospital because of an ambulance. PAST MEDICAL HISTORY: As noted. PHYSICAL EXAMINATION: Please see the dictated note. PERTINENT LABORATORY AND X-RAY STUDIES: Repeat swab for coronavirus was reported as negative. Admission hemoglobin was 14.4 g/dL with a white count of 5000. Chemistry panel showed potassium on admission of 3.3 mEq. This was replaced and followed up. Her blood sugars were drawn. They were in the mid 100 range. IMAGING STUDIES: The patient had a chest x-ray, which was reported as clear without any disease process. CT of the head showed no acute strokes. CT of the abdomen showed some right lower lobe lung atelectasis. No acute abnormalities in the abdomen or pelvis. She had a maxillofacial CT also done because of some symptoms. There is no evidence of sinusitis. COURSE IN THE HOSPITAL: The patient was admitted, given IV hydration, potassium replacement. Empiric prednisone was started and she had some improvement. This was discussed with the keyboarding clerk in the [facility] system. Please refer to Dr. Barajas's note. She wanted to go to [facility], but I do not think this is necessary for a lateral transfer. We had talked about getting her to [place] for home health. They did not accept her. They did not have the bed available. She was then agreeable to go home with home health. On the fifth hospital day, she was discharged home with 7 days of empiric Augmentin 500 /125 b.i.d. for her sinus congestion. In addition, prednisone 40 mg p.o. daily with a slow taper and a script for Novopen for sliding scale insulin because of her diabetes and her sugars been elevated due to the prednisone. Her other home meds are unchanged. She should continue her Lipitor 80 mg daily, vitamin D3, glimepiride 2 mg daily, Protonix 40 mg daily, potassium supplementation, prednisone 40 mg daily and verapamil 240 mg SR daily. For now, we held her losartan because of blood pressure. Again, insulin intermittently for sliding scale, she had been getting somewhere between 3-5 units for a slightly elevated blood sugars. She will follow up with her PCP and keyboarding clerk. Home health has also been arranged. She was discharged then from our hospital in stable condition with explicit instructions and followup care. HILARIO GLOVER MD DR: KATHERYN/fabienne JOB#: [id number] / [id number] RIO Copeland
== END 2020-07-26 12:06 | disposition home health service (06) | DRG 177 ==
LOC: ER 10:20 → 1 SOUTH 12:05
PROVIDERS: ADMIT Internal Medicine; ATTEND Internal Medicine
DX: U07.1 COVID-19 (principal); N17.0 Acute kidney failure with tubular necrosis; E87.2 Acidosis; K50.90 Crohn's disease, unspecified, without complications; E11.9 Type 2 diabetes mellitus without complications; E78.5 Hyperlipidemia, unspecified; E87.6 Hypokalemia; J32.9 Chronic sinusitis, unspecified; K21.9 Gastro-esophageal reflux disease without esophagitis; Z79.84 Long term (current) use of oral hypoglycemic drugs; Z79.899 Other long term (current) drug therapy; Z82.49 Family history of ischemic heart disease and other diseases of the circulatory system; Z90.49 Acquired absence of other specified parts of digestive tract; Z96.649 Presence of unspecified artificial hip joint; Z88.2 Allergy status to sulfonamides; Z88.7 Allergy status to serum and vaccine; Z88.8 Allergy status to other drugs, medicaments and biological substances
CPT/HCPCS: 36415; 70450; 70486; 71045; 74176; 80048; 80053; 80076; 81001; 82274; 82947; 83605; 83690; 83880; 84484; 85025; 85027; 86140; 87040; 87426; 87493; 87505; 93005; 96360; 96361; C9113; J1815; J2405; J7042; J7512; Q9967; U0003; 97116; 97535; 99285-25; J7030

== ENCOUNTER 2020-10-23 14:40 | Emergency (ER) | payer MEDICARE ==
[~2020-10-23] VITALS: Ht 162.6 cm; Wt 89.3 kg
[~2020-10-23 14:40] MED LIST changes: +AMOX1TAB58 PO; +NYST15PO9 TP; +PANT40TA3 PO; +PRED20TA PO
[2020-10-23 14:53] VITALS: BP 150/84
--- NOTE | 2020-10-23 15:05 | EKG ---
[address] [address] Test Date: 2020-10-23 Test Time: 14:48:12 Pat Name: BARRINGTON TRIPATHI Department: Room: Gender: F Convenience Store Manager: ILIA : 1935 Requested By: JACOB MACHADO Order Number: [id number] Reading MD: Measurements Intervals Camilla Rate: 102 P: -90 [place]: 228 QRS: -62 QRSD: 84 T: 64 QT: 350 QTc: 461 Interpretive Statements SINUS TACHYCARDIA PROLONGED [place] INTERVAL ABNORMAL LEFT AXIS DEVIATION LEFT ANTERIOR FASCICULAR BLOCK CONSIDER LEFT VENTRICULAR HYPERTROPHY T ABNORMALITY IN HIGH LATERAL LEADS ABNORMAL ECG RI6.02 No previous ECG available for comparison
[2020-10-23 15:11] LABS: BASO # 0.1 x10^3/uL (0.0-0.2); BASO % 1 % (0-3); CALCIUM 9.4 mg/dL (8.5-10.1); CREATININE 0.8 mg/dL (0.6-1.0); EOS # 0.2 x10^3/uL (0.0-0.7); EOS % 2 % (0-3); GFR 68.2; HEMATOCRIT 41.1 % (36.0-47.0); HEMOGLOBIN 13.2 g/dL (12.0-15.5); LYMPH # 2.1 x10^3/uL (1.0-4.8); LYMPH % 26 % (24-48); MEAN CORPUSCULAR HEMOGLOBIN 29 pg (25-35); MEAN CORPUSCULAR HGB CONC 32 g/dL (31-37); MEAN CORPUSCULAR VOLUME 90 fL (79-100); MONO # 0.5 x10^3/uL (0.0-1.1); MONO % 6 % (0-9); NEUT # 5.3 x10^3uL (1.8-7.7); NEUT % 65 % (31-73); PLATELET COUNT 248 x10^3/uL (140-400); POTASSIUM 4.3 mmol/L (3.5-5.1); RED BLOOD COUNT 4.58 x10^6/uL (3.50-5.40); RED CELL DISTRIBUTION WIDTH 15.8 % (11.5-14.5); WHITE BLOOD COUNT 8.2 x10^3/uL (4.0-11.0)
--- NOTE | 2020-10-23 15:12 | RAD ---
EXAM: Chest, single view. HISTORY: Chest pain. COMPARISON: 07/21/2020 FINDINGS: Frontal views of the chest are obtained. There is no infiltrate, pleural effusion or pneumo thorax. The heart is normal in size. There is a nodule overlying the lateral right mid thorax which i s more conspicuous compared to the prior exam. The heart is normal in size. IMPRESSION: 1. No acute pulmonary finding. 2. Nodule overlying the right mid thorax. This is not clearly calcified and is not seen on prior abdo men and pelvis CTs. This can be better assessed with a chest CT. Electronically signed by: Linda Hassan MD (10/23/2020 3:10 PM) [id number]
--- NOTE | 2020-10-23 15:14 | PHYS DOC ---
Past History Past Medical History: Diabetes, GERD, Hypertension, Other Additional Past Medical Histor: CROHNS, covid19 Past Surgical History: Appendectomy, Cancer Surgery, Cholecystectomy, Hip Replacement Additional Past Surgical Histo: colon Alcohol Use: None General Adult EDM: Chief Complaint: CHEST PAIN HPI: HPI: 85-year-old female presents from her primary care office with chest pain. She woke up this morning and had a mid chest pressure that "bubbles up to my throat". She has had this feeling pretty persistently all morning and throughout the afternoon. She went to her primary care physician who was concerned about these episodes and advised that she come to the emergency room. The patient further tells me that she had diaphoresis with some of the episodes this morning. She denies shortness of breath. It is worse with exertion and improves with rest. She currently is pain-free but at its worst it is a moderate level discomfort. Patient has a history of atrial fibrillation. She had a cardiac cath in April of last year that was reported to be negative. She also has a history of hypokalemia. Review of Systems: Review of Systems: Constitutional: Denies fever or chills Eyes: Denies change in visual acuity HENT: Denies nasal congestion or sore throat Respiratory: Denies cough or shortness of breath Cardiovascular: Chest pain GI: Denies abdominal pain, nausea, vomiting, bloody stools or diarrhea : Denies dysuria Musculoskeletal: Denies back pain or joint pain Integument: Denies rash Neurologic: Denies headache, focal weakness or sensory changes Endocrine: Denies polyuria or polydipsia Lymphatic: Denies swollen glands Psychiatric: Denies depression or anxiety Allergies: Allergies: Allergies Coded Allergies Type Severity Reaction Last Updated Verified Influenza Virus Vaccines Allergy Unknown 10/23/20 Yes Sulfa (Sulfonamide Antibiotics) Allergy Unknown 10/23/20 Yes pneumococcal vaccine Allergy Unknown 10/23/20 Yes tetanus and diphtheria toxoids Allergy Unknown 10/23/20 Yes Physical Exam: PE: Constitutional: Well developed, well nourished, obese, no acute distress, non- toxic appearance. [] HENT: Normocephalic, atraumatic, bilateral external ears normal, oropharynx moist, no oral exudates, nose normal. [] Eyes: PERRLA, EOMI, conjunctiva normal, no discharge. [] Neck: Normal range of motion, no tenderness, supple, no stridor. [] Cardiovascular: Heart rate regular rhythm, no murmur [] Lungs & Thorax: Bilateral breath sounds clear to auscultation [] Abdomen: Bowel sounds normal, soft, no tenderness, no masses, no pulsatile masses. [] Skin: Warm, dry, no erythema, no rash. [] Back: No tenderness, no CVA tenderness. [] Extremities: No tenderness, no cyanosis, no clubbing, ROM intact, no edema. [] Neurologic: Alert and oriented X 3, normal motor function, normal sensory function, no focal deficits noted. [] Psychologic: Affect normal, judgement normal, mood normal. [] Current Patient Data: Vital Signs: Vital Signs Date Time Temp Pulse Resp B/P (MAP) Pulse Ox O2 Delivery O2 Flow Rate FiO2 10/23/20 14:53 96.5 107 20 150/84 (106) 96 EKG: EKG: Sinus tachycardia, rate 102, prolonged ME interval, left axis deviation, no ST elevation or depression. [] Radiology/Procedures: Radiology/Procedures: [] Impressions: EXAM: Chest, single view. HISTORY: Chest pain. COMPARISON: 07/21/2020 FINDINGS: Frontal views of the chest are obtained. There is no infiltrate, pleural effusion or pneumothorax. The heart is normal in size. There is a nodule overlying the lateral right mid thorax which is more conspicuous compared to the prior exam. The heart is normal in size. IMPRESSION: 1. No acute pulmonary finding. 2. Nodule overlying the right mid thorax. This is not clearly calcified and is not seen on prior abdomen and pelvis CTs. This can be better assessed with a [facility] CT. Electronically signed by: Linda Hassan MD (10/23/2020 3:10 PM) [id number] DICTATED AND SIGNED BY: LINDA HASSAN MD DATE: 10/23/20 1508 CC: JACOB MACHADO DO; RIO STOVALL ~MTH0 0 Heart Score: C/O Chest Pain: Yes HEART Score for Chest Pain: HEART Score for Chest Pain Response (Comments) Value History Moderately Suspicious 1 Age > 65 2 Risk Factors 1 or 2 Risk Factors 1 Troponin < Normal Limit 0 Total 4 Risk Factors: Risk Factors: DM, Current or recent (<one month) smoker, HTN, HLP, family history of CAD, obesity. Risk Scores: Score 0 - 3: 2.5% MACE over next 6 weeks - Discharge Home Score 4 - 6: 20.3% MACE over next 6 weeks - Admit for Clinical Observation Score 7 - 10: 72.7% MACE over next 6 weeks - Early Invasive Strategies Course & Med Decision Making: Course & Med Decision Making Pertinent Labs and Imaging studies reviewed. (See chart for details) The patient's EKG shows mild tachycardia. No acute ST changes. Her physician did fax us a summary of her visit and it states that she had a cardiac cath in April as the patient stated. It concluded she had mild luminal irregularities otherwise no significant obstructive coronary artery disease. Ejection fraction of 65%. Her labs are unremarkable except for slightly elevated liver enzymes. Her troponin is negative. Her heart score is a 4 however she had a clean cardiac cath just a few months ago. With her symptoms starting this morning, I would expect her troponin to be elevated if this was cardiac in nature. The patient would also prefer to go home. I believe this is reasonable given her exact circumstances. If her condition worsens anyway she will return to the emergency room. She is stable for discharge at this time. [] Juanon Disclaimer: Dragon Disclaimer: This electronic medical record was generated, in whole or in part, using a voice recognition dictation system. Departure Departure: Impression: Primary Impression: Chest pain Qualified Codes: R07.2 - Precordial pain Disposition: HOME / SELF CARE / HOMELESS Condition: STABLE Referrals: RIO STOVALL (PCP) Patient Instructions: Chest Pain (Nonspecific), [id number] JACOB MACHADO DO Oct 23, 2020 15:14
[2020-10-23 15:17] LABS: TOTAL BILIRUBIN 0.5 mg/dL (0.2-1.0)
== END 2020-10-23 16:05 | disposition home or self-care (01) ==
LOC: ER 14:40
DX: R07.2 Precordial pain (principal); I10 Essential (primary) hypertension; K21.9 Gastro-esophageal reflux disease without esophagitis; E11.9 Type 2 diabetes mellitus without complications; K50.90 Crohn's disease, unspecified, without complications; Z88.2 Allergy status to sulfonamides; Z88.8 Allergy status to other drugs, medicaments and biological substances; Z88.7 Allergy status to serum and vaccine
CPT/HCPCS: 36415; 71045; 80053; 84484; 85025; 93005; 99285-25

== ENCOUNTER → 2021-11-12 | Outpatient (CLI) | payer MEDICARE ==
--- NOTE | 2021-11-12 10:42 | RAD ---
EXAM: Right upper extremity venous Doppler sonogram. HISTORY: Pain and swelling. TECHNIQUE: Banegas scale and color Doppler sonographic evaluation of the right upper extremity veins wit h spectral waveform analysis was performed. FINDINGS: There is normal color flow, normal compressibility and there are normal spectral waveforms in the upper extremity veins. IMPRESSION: No Doppler evidence of upper extremity venous thrombosis. Electronically signed by: Linda Hassan MD (11/12/2021 10:39 AM) [id number]
== END ==
LOC: US 09:48
PROVIDERS: ATTEND Family Medicine
DX: M79.601 Pain in right arm (principal)
CPT/HCPCS: 93971